=== PATIENT | male | born 1945 | race Caucasian/White ===

== ENCOUNTER 2022-09-07 07:05 | Day surgery (SDC) | payer MEDICARE ==
[2022-09-05 11:34] LABS: CLARITY,URINE CLEAR (Clear); COLOR,URINE YELLOW (Yellow); GLUCOSE, URINE NEGATIVE (Neg); KETONES,URINE NEGATIVE (Neg); LEUKOCYTE ESTERASE ,URINE NEGATIVE (Neg); NITRITES, URINE NEGATIVE (Neg); OCCULT BLOOD,URINE NEGATIVE (Neg); PH,URINE 6.5 (4.8-8.0); PROTEIN,URINE NEGATIVE (Neg); UROBILINOGEN,URINE 0.2 E.U/dL (0.2-1.0)
[2022-09-05 11:34] LABS: BASOPHILS % (AUTO) 0.4 % (0-1); EOSINOPHILS # (AUTO) 0.4 X10'3 (0-0.9); EOSINOPHILS % (AUTO) 5.5 % (0-6); LYMPHOCYTES # (AUTO) 1.1 X10'3 (1.1-4.8); LYMPHOCYTES % (AUTO) 15.5 % (21-51); MEAN CORPUSCULAR HEMOGLOBIN 31.8 PG (27.0-31.0); MEAN CORPUSCULAR HGB CONC 34.3 g/dL (33.0-36.5); MEAN CORPUSCULAR VOLUME 92.6 FL (78-98); MEAN PLATELET VOLUME 7.6 FL (7.4-10.4); MONOCYTES # (AUTO) 0.7 X10'3 (0-0.9); MONOCYTES % (AUTO) 8.8 % (2-12); NEUTROPHILS # (AUTO) 5.1 X10'3 (1.8-7.7); NEUTROPHILS % (AUTO) 69.8 % (42-75); PRE OP HEMATOCRIT 43.6 % (42.0-52.0); PRE OP HEMOGLOBIN 14.9 g/dL (14.0-17.9); PRE OP PLATELET COUNT 205 X10'3 (140-440); RED CELL DISTRIBUTION WIDTH 14.2 % (11.5-14.5)
[2022-09-05 11:36] LABS: UA COLLECTION TYPE CLN CATCH MIDSTREAM
[2022-09-05 11:48] LABS: ALBUMIN 4.1 G/DL (3.4-5.0); ALBUMIN/GLOBULIN RATIO 1.2 (1.1-1.5); ALKALINE PHOSPHATASE 81 IU/L (46-116); BLOOD UREA NITROGEN 16 MG/DL (7-18); BUN/CREATININE RATIO 21.3 (10.0-20.0); CALCIUM 9.3 MG/DL (8.5-10.1); CHLORIDE 101 MMOL/L (99-107); CREATININE 0.75 MG/DL (0.60-1.10); PRE OP ALT 31 U/L (30-65); PRE OP ANION GAP 8 (8-16); PRE OP AST 23 U/L (10-37); PRE OP BILIRUB, TOTAL 0.6 MG/DL (0.0-1.0); PRE OP GLUCOSE 105 MG/DL (70-104); PRE OP SODIUM 137 MMOL/L (135-145); TOTAL CARBON DIOXIDE 27.8 MMOL/L (24-32); TOTAL PROTEIN 7.5 G/DL (6.4-8.2); eGFR > 90 ML/MIN
[2022-09-05 12:01] LABS: PRE OP POTASSIUM 4.5 MMOL/L (3.4-5.1)
[2022-09-07] VITALS (11 sets, daily range): BP systolic 100–139; BP diastolic 68–96
[~2022-09-07] VITALS: Ht 190.5 cm; Wt 99.0 kg
[~2022-09-07 07:05] MED LIST: ASPI-12 PO; BUPIVAcaine/PF 2.5 mg/ml (0.25%) 30ml vial ONE; CELE-193 PO; DILT180C64 PO; FLO0.4C PO; KRIL1CAP21 PO; MAGN296S68 PO; MELA3TAB41 PO; OMEP20CA16 PO; PSYL0.4C2 PO; ROSU10TA2 PO; SLIPPERY ELM PO; ZINC100T2 PO; [UNRECOGNIZED DRUG - CODE] PO; cefazolin 2gm/D5W 100mL 100 ML IV ONE; famotidine 20mg tablet PO ONE; ringers solution, lacted 1,000 ML IV SCH
[2022-09-07] MEDS ORDERED: rocuronium 10mg/ml inj IV ONE ×2 (08:48→09:03)
[2022-09-07] MEDS ORDERED: sevoflurane 250ml liquid IH ONE (08:48)
[2022-09-07] MEDS ORDERED: midazolam 1 mg/ML 2ml injection ONE (08:57)
[2022-09-07] MEDS ORDERED: fentaNYL/PF 50MCG/1 ML 2ML syringe ONE (08:57)
[2022-09-07] MEDS ORDERED: propofol inj 20 ML IV ONE (08:58)
[2022-09-07] MEDS ORDERED: LIDOcaine 2% (20mg/ml) 5ml vial ONE (08:58)
[2022-09-07] MEDS ORDERED: ondansetron/PF 4mg/2ml inj ONE (09:09)
[2022-09-07] MEDS ORDERED: dexamethasone sod phosphate 4mg/ml inj. ONE (09:09)
[2022-09-07] MEDS ORDERED: acetaminophen 1,000mg/100ml IV 100 ML IV ONE (09:14)
[2022-09-07] MEDS ORDERED: meperidine/PF 25mg/ml syringe ONE (09:16)
[2022-09-07] MEDS ORDERED: ringers solution, lacted 1,000 ML IV SCH (09:45)
[2022-09-07] MEDS ORDERED: ondansetron/PF 4mg/2ml inj IV PRN (09:45)
[2022-09-07] MEDS ORDERED: morphine 4 MG/ML inj SYRINge IV PRN (09:45)
[2022-09-07] MEDS ORDERED: morphine 2 MG/ML inj. syringe IV PRN (09:45)
[2022-09-07] MEDS ORDERED: proCHLORperazine 10 MG/2 ml inj IV PRN (09:45)
[2022-09-07] MEDS ORDERED: meperidine/PF 25mg/ml syringe IV PRN ×3 (09:45)
[2022-09-07] MEDS ORDERED: glycopyrrolate 0.2mg/ml inj ONE (11:14)
[2022-09-07] MEDS ORDERED: neostigmine methylsulfate 1 MG/ML 10ml vial ONE (11:14)
--- NOTE | 2022-09-07 11:18 | NUR ---
Received from OR via , accompanied by Anesthesiologist TRIP AND OR NURSE and report given by Anesthesiolgist. PT IS DROWSY YET ABLE TO FOLLOW COMMANDS. DENIES PAIN OR DISCOMFORT. 3 LAP SITES WITH DERMABOND; CDI. VSS Addendum: 09/07/22 at 1351 by Julissa Hammond RN Amended: Links added.
--- NOTE | 2022-09-07 14:48 | NUR ---
ABLE TO SAFELY AMBULATE AND TRANSFER SELF. PT NOT ABLE TO VOID; CATHETER PLACED PER PROTOCOL. IV TAKEN OUT WITHOUT ANY COMPLICATIONS. ALL DISCHARGE INSTRUCTIONS COVERED WITH PATIENT AND ALL QUESTIONS ANSWERED. PATIENT TAKEN OUT VIA WHEELCHAIR TO PERSONAL VEHICLE WHERE FAMILY/FRIEND DROVE PATIENT HOME. Addendum: 09/07/22 at 1538 by Julissa Hammond RN Amended: Links added.
== END 2022-09-07 14:48 | disposition home or self-care (01) ==
LOC: PAS 07:05
PROVIDERS: ATTEND Surgery
DX: K40.90 Unilateral inguinal hernia, without obstruction or gangrene, not specified as recurrent (principal); D17.6 Benign lipomatous neoplasm of spermatic cord; K21.9 Gastro-esophageal reflux disease without esophagitis; N40.0 Benign prostatic hyperplasia without lower urinary tract symptoms; G89.29 Other chronic pain; I48.20 Chronic atrial fibrillation, unspecified; I10 Essential (primary) hypertension; Z96.653 Presence of artificial knee joint, bilateral; Z79.899 Other long term (current) drug therapy; Z79.82 Long term (current) use of aspirin; Z72.89 Other problems related to lifestyle; Z98.41 Cataract extraction status, right eye; Z98.42 Cataract extraction status, left eye; Z98.890 Other specified postprocedural states; Z86.73 Personal history of transient ischemic attack (TIA), and cerebral infarction without residual deficits; Z82.3 Family history of stroke
CPT/HCPCS: 36415; 49650; 74018; 80053; 81003; 82948; 85025; 93005; C1758; C1781; J0131; J0690; J1100; J2175; J2250; J2405; J2704; J2710; J3010; J3490; J7030; J7120; Z7506; Z7508; Z7512; 76000; A4215; A4615; A4618

== ENCOUNTER 2024-01-02 05:37 | Day surgery (SDC) | payer MEDICARE ==
[2023-12-25 15:53] LABS: BASOPHILS % (AUTO) 0.5 % (0-1); EOSINOPHILS # (AUTO) 0.2 X10'3 (0-0.9); EOSINOPHILS % (AUTO) 2.6 % (0-6); LYMPHOCYTES # (AUTO) 1.2 X10'3 (1.1-4.8); LYMPHOCYTES % (AUTO) 14.1 % (21-51); MEAN CORPUSCULAR HEMOGLOBIN 31.2 PG (27.0-31.0); MEAN CORPUSCULAR HGB CONC 33.7 g/dL (33.0-36.5); MEAN CORPUSCULAR VOLUME 92.5 FL (78-98); MEAN PLATELET VOLUME 7.3 FL (7.4-10.4); MONOCYTES # (AUTO) 0.7 X10'3 (0-0.9); NEUTROPHILS # (AUTO) 6.6 X10'3 (1.8-7.7); NEUTROPHILS % (AUTO) 74.8 % (42-75); PRE OP HEMATOCRIT 44.3 % (42.0-52.0); PRE OP HEMOGLOBIN 14.9 g/dL (14.0-17.9); PRE OP PLATELET COUNT 232 X10'3 (140-440); PRE OP WHITE BLOOD COUNT 8.9 10'3 (4.8-10.8); RED BLOOD COUNT 4.79 X10'6 (4.70-6.10); RED CELL DISTRIBUTION WIDTH 13.7 % (11.5-14.5)
[2023-12-25 16:04] LABS: PRE OP INR 1.1 INR; PRE OP PROTIME 11.9 SECONDS (9.0-12.0)
[2023-12-25 16:06] LABS: ALBUMIN 4.1 G/DL (3.4-5.0); ALBUMIN/GLOBULIN RATIO 1.1 (1.1-1.5); ALKALINE PHOSPHATASE 94 IU/L (46-116); BLOOD UREA NITROGEN 16 MG/DL (7-18); BUN/CREATININE RATIO 23.9 (10.0-20.0); CALCIUM 9.6 MG/DL (8.5-10.1); CHLORIDE 93 MMOL/L (99-107); CREATININE 0.67 MG/DL (0.60-1.10); PRE OP ALT 31 U/L (30-65); PRE OP ANION GAP 9 (8-16); PRE OP AST 24 U/L (10-37); PRE OP BILIRUB, TOTAL 0.7 MG/DL (0.0-1.0); PRE OP GLUCOSE 93 MG/DL (70-104); PRE OP POTASSIUM 3.9 MMOL/L (3.4-5.1); TOTAL CARBON DIOXIDE 27.2 MMOL/L (24-32); TOTAL PROTEIN 7.7 G/DL (6.4-8.2); eGFR > 90 ML/MIN
[2023-12-25 16:07] LABS: PRE OP SODIUM 129 MMOL/L (135-145)
[2024-01-02] VITALS (20 sets, daily range): BP systolic 107–160; BP diastolic 60–90; PULSE 61–88; RESP 12–18; TEMP 95.5–98.5; O2SAT 92–97
[~2024-01-02] VITALS: Ht 188 cm; Wt 104.4 kg
[2024-01-02] MEDS: cefazolin 2gm/D5W 100mL 100 ML IV ONE (05:30)
[2024-01-02] MEDS: tranexamic acid inj. 1,000 MG in normal saline IV soln 100ML IV ONE (05:30)
[~2024-01-02 05:37] MED LIST changes: -ASPI-12 PO; -BUPIVAcaine/PF 2.5 mg/ml (0.25%) 30ml vial ONE; +DICL100G31 TOP; -KRIL1CAP21 PO; +LIDO1ADH78 TOP; -MAGN296S68 PO; -MELA3TAB41 PO; +POLY119P2 PO; -PSYL0.4C2 PO; -ROSU10TA2 PO; +ROSU20TA73 PO; -SLIPPERY ELM PO; -ZINC100T2 PO; -[UNRECOGNIZED DRUG - CODE] PO; -cefazolin 2gm/D5W 100mL 100 ML IV ONE; -famotidine 20mg tablet PO ONE; -ringers solution, lacted 1,000 ML IV SCH
[2024-01-02] MEDS: famotidine 20mg tablet PO ONE (06:32)
[2024-01-02] MEDS: ringers solution, lacted 1,000 ML IV SCH ×2 (06:32→07:00)
[2024-01-02 06:51] LABS: ISTAT ANION GAP 11 (8-12); ISTAT BUN 15 mg/dL (7-18); ISTAT CL 97 mmol/L (99-107); ISTAT CREATININE 0.8 mg/dL (0.8-1.3); ISTAT GLUCOSE 113 mg/dL (70-104); ISTAT HGB 13.9 g/dl (14.0-17.9); ISTAT Hct 41 %PCV (42-52); ISTAT IONIZED CALCIUM 1.25 mmol/L (1.03-1.32); ISTAT K 4.1 mmol/L (3.5-5.1); ISTAT NA 133 mmol/L (135-145); ISTAT TOTAL CO2 25 mmol/L (24-32); ISTAT eGFR > 90 ML/MIN; POC BUN/CREATININE RATIO 18.8 (5.4-32.0)
[2024-01-02] MEDS ORDERED: ondansetron/PF 4mg/2ml inj IV PRN ×2 (07:00→07:15)
[2024-01-02] MEDS ORDERED: morphine 2 MG/ML inj. syringe IV PRN (07:00)
[2024-01-02] MEDS ORDERED: morphine 4 MG/ML inj SYRINge IV PRN (07:00)
[2024-01-02] MEDS ORDERED: meperidine/PF 25mg/ml syringe IV PRN ×3 (07:00)
[2024-01-02] MEDS: acetaminophen 1,000mg/100ml IV 100 ML IV ONE (07:00)
[2024-01-02] MEDS ORDERED: hydrALAZINE 20mg/ml inj. IV PRN (07:00)
[2024-01-02] MEDS ORDERED: proCHLORperazine 10 MG/2 ml inj IV PRN (07:00)
[2024-01-02] MEDS ORDERED: labetalol 20mg/4ml (5mg/ml) syringe IV PRN (07:00)
[2024-01-02] MEDS: cloNIDine hcl/PF 100mcg/ml inj ONE (07:06)
[2024-01-02] MEDS ORDERED: fentaNYL/PF 50MCG/1 ML 2ML syringe ONE (07:10)
[2024-01-02] MEDS: methylene blue (5mg/ml) 50mg/10ml ampul IV ONE (07:13)
[2024-01-02] MEDS: Thrombin (Bovine) 5,000 unit vial TP ONE (07:13)
[2024-01-02] MEDS: tranexamic acid 100mg/ml inj. ONE (07:13)
[2024-01-02] MEDS ORDERED: midazolam 1 mg/ML 2ml injection ONE (07:13)
[2024-01-02] MEDS: vancomycin 1,000mg inj ONE (07:13)
[2024-01-02] MEDS: gelatin sponge, absorbable (Gelfoam 100) sponge TP ONE (07:13)
[2024-01-02] MEDS ORDERED: acetaminophen 325mg tablet PO PRN (07:15)
[2024-01-02] MEDS ORDERED: diphenhydrAMINE 25mg capsule PO PRN (07:15)
[2024-01-02] MEDS ORDERED: bisacodyl 10mg suppository rectal RC PRN (07:15)
[2024-01-02] MEDS ORDERED: HYDROcodone/acetaminophen 5mg/325mg tablet PO PRN (07:15)
[2024-01-02] MEDS ORDERED: magnesium hydroxide 30ml (MOM) UD suspension PO PRN (07:15)
[2024-01-02] MEDS ORDERED: naloxone 0.4 mg/ml inj IV PRN (07:15)
[2024-01-02] MEDS ORDERED: sevoflurane 250ml liquid IH ONE (07:24)
[2024-01-02] MEDS: cefazolin 2gm/D5W 100mL 100 ML IV SCH (08:00)
[2024-01-02] MEDS ORDERED: LIDOcaine 2% (20mg/ml) 5ml vial ONE (08:28)
[2024-01-02] MEDS ORDERED: ePHEDrine 50MG/ML INJ. ONE (08:28)
[2024-01-02] MEDS ORDERED: LIDOcaine 1%/PF 5ML 10 MG/ML VIAL ONE (08:28)
[2024-01-02] MEDS ORDERED: ROPIVAcaine 0.5% (5mg/ml) 30ml vial ONE (08:28)
[2024-01-02] MEDS ORDERED: propofol inj 20 ML IV ONE (08:28)
[2024-01-02] MEDS ORDERED: rocuronium 10mg/ml inj IV ONE (08:28)
[2024-01-02] MEDS ORDERED: dexamethasone sod phosphate 4mg/ml inj. ONE (08:28)
[2024-01-02] MEDS ORDERED: ondansetron/PF 4mg/2ml inj ONE (08:29)
[2024-01-02] MEDS ORDERED: neostigmine methylsulfate 1 MG/ML 10ml vial ONE (09:42)
[2024-01-02] MEDS ORDERED: glycopyrrolate 0.2mg/ml inj ONE (09:42)
[2024-01-02] MEDS: potassium cl 20mEq in 1/2 NS 1,000 ML IV SCH (15:26)
[2024-01-02] MEDS: HYDROcodone/acetaminophen 5mg/325mg tablet PO PRN (20:56)
[2024-01-03] MEDS: cefazolin 2gm/D5W 100mL 100 ML IV ONE (01:00)
[2024-01-03 05:21] LABS: BASOPHILS % (AUTO) 0 % (0-1); EOSINOPHILS % (AUTO) 0.1 % (0-6); HEMATOCRIT 38.8 % (42.0-52.0); HEMOGLOBIN 12.9 g/dl (14.0-17.9); LYMPHOCYTES # (AUTO) 0.5 X10'3 (1.1-4.8); LYMPHOCYTES % (AUTO) 4.1 % (21-51); MEAN CORPUSCULAR HGB CONC 33.2 g/dL (33.0-36.5); MEAN CORPUSCULAR VOLUME 93.3 FL (78-98); MEAN PLATELET VOLUME 7.7 FL (7.4-10.4); MONOCYTES # (AUTO) 0.9 X10'3 (0-0.9); MONOCYTES % (AUTO) 7.3 % (2-12); NEUTROPHILS # (AUTO) 11.2 X10'3 (1.8-7.7); NEUTROPHILS % (AUTO) 88.5 % (42-75); PLATELET COUNT 220 X10'3 (140-440); RED BLOOD COUNT 4.16 X10'6 (4.70-6.10); RED CELL DISTRIBUTION WIDTH 13.6 % (11.5-14.5); WHITE BLOOD COUNT 12.6 X10'3 (4.5-11.0)
[2024-01-03 05:41] LABS: ALANINE AMINOTRANSFERASE 24 U/L (12-78); ALBUMIN 3.4 G/DL (3.4-5.0); ALBUMIN/GLOBULIN RATIO 1.1 (1.1-1.5); ALKALINE PHOSPHATASE 72 IU/L (46-116); ANION GAP 8 (8-16); ASPARTATE AMINO TRANSFERASE 22 U/L (10-37); BILIRUBIN,TOTAL 0.5 MG/DL (0.1-1.0); BLOOD UREA NITROGEN 11 MG/DL (7-18); BUN/CREATININE RATIO 14.1 (10.0-20.0); CALCIUM 9.2 MG/DL (8.5-10.1); CHLORIDE 100 MMOL/L (99-107); CREATININE 0.78 MG/DL (0.60-1.10); GLUCOSE 143 MG/DL (70-104); POTASSIUM 4.7 MMOL/L (3.5-5.1); SODIUM 136 MMOL/L (135-145); TOTAL PROTEIN 6.6 G/DL (6.4-8.2); eCRCL 89 ML/MIN; eGFR > 90 ML/MIN
[2024-01-03 06:00] VITALS: BP 139/93; PULSE 94; RESP 17; TEMP 98.2; O2SAT 92
[2024-01-03 08:00] VITALS: RESP 17; O2SAT 92
[2024-01-03 08:37] VITALS: RESP 16
== END 2024-01-03 11:00 | disposition home or self-care (01) ==
LOC: PAS 05:37 → ORTHO 4S 07:24 → PAS 01-03 11:00
PROVIDERS: ATTEND Specialist
DX: M19.011 Primary osteoarthritis, right shoulder (principal); I10 Essential (primary) hypertension; F41.9 Anxiety disorder, unspecified; E78.5 Hyperlipidemia, unspecified; F32.A Depression, unspecified; N40.0 Benign prostatic hyperplasia without lower urinary tract symptoms; G89.18 Other acute postprocedural pain; F10.90 Alcohol use, unspecified, uncomplicated; Z96.653 Presence of artificial knee joint, bilateral; Z98.49 Cataract extraction status, unspecified eye; Z98.890 Other specified postprocedural states; Z79.899 Other long term (current) drug therapy
CPT/HCPCS: 23472; 36415; 64415; 71046; 73030; 80053; 85025; 85610; 85730; 86885; 86900; 86901; 87081; 97110; 97161; 97530; A4615; A4618; A6402; A6455; A6590; A7000; C1776; J0690; J0735; J1100; J2001; J2250; J2405; J2704; J2710; J2795; J3010; J3370; J3480; J3490; J7030; J7120; Q9968; Z7506; Z7508; Z7512; Z7610; 76000; 80047; A6449; G0378